=== PATIENT | female | born 1965 | race African-American/Black ===

== ENCOUNTER 2021-06-22 16:41 | Inpatient (IN) | payer BC, OTHER ==
[~2021-06-22] VITALS: Ht 182.9 cm; Wt 67.6 kg
[~2021-06-22 16:41] MED LIST: [UNRECOGNIZED DRUG - REMARK]
[2021-06-22] MEDS ORDERED: LEVETIRACETAM 1000MG PREMIX 100 ML IV ONE (17:00)
[2021-06-22] MEDS ORDERED: ONDANSETRON HCL 4MG/2ML INJ IV STA (17:00)
[2021-06-22] MEDS ORDERED: SODIUM CHLORIDE 0.9% 1,000 ML IV ONE (17:45)
[2021-06-22] MEDS ORDERED: LORAZEPAM 2MG/ML CPJ IV ONE (17:45)
[2021-06-22 17:49] LABS: BASOPHILS % 0.4 % (0.0-2.0); EOSINOPHILS % 1.7 % (0.0-5.0); HEMATOCRIT. 34.1 % (36.0-48.0); HEMOGLOBIN. 10.9 g/dL (12.0-16.0); LYMPHOCYTES % 19.7 % (20.0-50.0); MEAN CORPUSCULAR HEMOGLOBIN 23.4 pg (28.0-32.0); MEAN CORPUSCULAR VOLUME 73.1 fL (81.0-99.0); MEAN PLATELET VOLUME 9.2 fl (7.4-10.4); MONOCYTES % 8.6 % (2.0-8.0); NEUTROPHILS % 69.6 % (40.0-76.0); PLATELET 225 x1000/uL (130-400); RED BLOOD CELL COUNT 4.66 mill/uL (4.2-5.4); RED CELL DISTRIBUTION WIDTH 21.9 % (11.6-14.6)
[2021-06-22 17:53] LABS: CHLORIDE 108 mEq/L (98-107); INR 1.2; PROTHROMBIN TIME 12.4 sec (9.6-11.0)
[2021-06-22 18:08] LABS: CREATINE KINASE 68 IU/L (26-192); ETHANOL BLOOD < 10 mg/dL
[2021-06-22] MEDS ORDERED: POTASSIUM CHLORIDE INJ 40 MEQ in DEXT 5% WATER 250 ML IV ONE (18:30)
[2021-06-22] MEDS ORDERED: MAGNESIUM 2 G PREMIX 50 ML IV ONE (18:30)
[2021-06-22] MEDS ORDERED: KCL 20MEQ/100ML X 2 FOR TOTAL KCL 40MEQ/200ML IV SCH (20:00)
[2021-06-22] MEDS ORDERED: GUAIFENESIN 200MG/10ML SUGAR FREE UDC PO PRN (21:15)
[2021-06-22] MEDS ORDERED: ONDANSETRON HCL 4MG/2ML INJ IV PRN (21:15)
[2021-06-22] MEDS ORDERED: DOCUSATE SODIUM 100MG CAPSULE PO PRN (21:15)
[2021-06-22] MEDS ORDERED: MORPHINE SULFATE 2 MG/ML CPJ (NOT FOR IM USE) IV PRN (21:15)
[2021-06-22] MEDS ORDERED: HYDRALAZINE 20MG/ML VIAL IV PRN (21:15)
[2021-06-22] MEDS ORDERED: DIPHENHYDRAMINE 50MG/ML VIAL IV PRN (21:15)
[2021-06-22] MEDS ORDERED: HYDROCODONE/ACETAMINOPHEN 5/325MG TABLET PO PRN (21:15)
[2021-06-22] MEDS ORDERED: CLONIDINE 0.1MG TABLET PO PRN (21:15)
[2021-06-22] MEDS ORDERED: MAGNESIUM/ALUMINUM HYDROXIDE/SIMETHICONE 30ML UDC PO PRN (21:15)
[2021-06-22] MEDS ORDERED: ACETAMINOPHEN 325MG TABLET PO PRN (21:15)
[2021-06-22] MEDS ORDERED: DEXT 5%/0.45% NACL 1000ML 1,000 ML IV SCH (21:15)
[2021-06-22] MEDS ORDERED: IPRATROPIUM/ALBUTEROL 0.5-3(2.5)MG/3ML NEB HHN PRN (21:15)
[2021-06-22] MEDS ORDERED: ENOXAPARIN 40MG/0.4ML SYR SUBCUT SCH (21:15)
[2021-06-22] MEDS ORDERED: NALOXONE HCL 0.4MG/ML VIAL IV PRN (21:30)
[2021-06-22] MEDS: SODIUM CHLORIDE 0.9% INJ 3ML FLUSH IVF SCH (22:10)
[2021-06-22 23:55] VITALS: BP 166/88
[2021-06-23] VITALS (12 sets, daily range): BP systolic 117–166; BP diastolic 64–89
[2021-06-23] MEDS: LORAZEPAM 2MG/ML CPJ IV PRN ×3 (01:04→21:29)
[2021-06-23 06:31] LABS: BASOPHILS % 0.2 % (0.0-2.0); EOSINOPHILS % 0.9 % (0.0-5.0); HEMATOCRIT. 30.9 % (36.0-48.0); HEMOGLOBIN. 10.2 g/dL (12.0-16.0); LYMPHOCYTES % 19.3 % (20.0-50.0); MEAN CORPUSCULAR HEMOGLOBIN 23.7 pg (28.0-32.0); MEAN PLATELET VOLUME 9.5 fl (7.4-10.4); MONOCYTES % 10.6 % (2.0-8.0); PLATELET 218 x1000/uL (130-400); RED BLOOD CELL COUNT 4.29 mill/uL (4.2-5.4)
[2021-06-23] MEDS ORDERED: PNEUMOCOCCAL 23-VAL P-SAC VAC 0.5 ML IM ONE (06:31)
[2021-06-23 06:35] LABS: CHLORIDE 113 mEq/L (98-107)
[2021-06-23] MEDS: SODIUM CHLORIDE 0.9% INJ 3ML FLUSH IVF SCH ×3 (06:39→22:00)
[2021-06-23] MEDS ORDERED: LEVETIRACETAM 500MG PREMIX 100 ML IV SCH (09:00)
[2021-06-23 09:48] LABS: PLATELET ESTIMATE NORMAL
[2021-06-23] MEDS: LEVETIRACETAM 500MG PREMIX 100 ML IV SCH (13:33)
[2021-06-23] MEDS: POTASSIUM CHLORIDE 20MEQ TABLET SR PO SCH ×2 (13:34→13:39)
[2021-06-23] MEDS ORDERED: POTASSIUM CHLORIDE INJ 40 MEQ in DEXT 5% WATER 250 ML IV ONE (14:15)
[2021-06-23] MEDS: KCL 20MEQ/100ML X 2 FOR TOTAL KCL 40MEQ/200ML IV SCH ×2 (16:00→18:18)
[2021-06-24] VITALS (11 sets, daily range): BP systolic 125–144; BP diastolic 78–94
[2021-06-24] MEDS: LEVETIRACETAM 500MG PREMIX 100 ML IV SCH ×2 (01:51→08:39)
[2021-06-24] MEDS: SODIUM CHLORIDE 0.9% INJ 3ML FLUSH IVF SCH ×2 (06:00→13:13)
[2021-06-24 07:12] LABS: VITAMIN B12 SERUM 1875 pg/mL (211-911)
[2021-06-24] MEDS: LORAZEPAM 2MG/ML CPJ IV PRN (15:31)
== END 2021-06-24 21:30 | disposition home or self-care (01) | DRG 101 ==
LOC: ER 16:41 → 5EST 18:24 → ENRESERV 20:46
PROVIDERS: ADMIT Internal Medicine; ATTEND Internal Medicine
DX: R56.9 Unspecified convulsions (principal); C18.9 Malignant neoplasm of colon, unspecified; C79.9 Secondary malignant neoplasm of unspecified site; Z20.822 Contact with and (suspected) exposure to COVID-19; D64.9 Anemia, unspecified; E86.0 Dehydration; E87.6 Hypokalemia; Z85.038 Personal history of other malignant neoplasm of large intestine
CPT/HCPCS: 36415; 71045; 80053; 80320; 82140; 82550; 82607; 83605; 83735; 83880; 84443; 84484; 85025; 87426; 90732; 93005; 93970; 99291; J1953; J2060; J2270; J2405; J3475; J3480; J7030; J7060; G0480